=== PATIENT | female | born 1990 | race Caucasian/White ===

== ENCOUNTER 2019-12-09 09:26 | Inpatient (IN) | payer OTHER ==
[~2019-12-09] VITALS: Ht 170.2 cm; Wt 95.0 kg
[~2019-12-09 09:26] MED LIST: CALCIUM500 MG PO; ORTHO TRI-CYCL1 EACH PO; PRENATAL VITAM1 EACH PO; TYLENOL325 MG PO
--- NOTE | 2019-12-14 13:12 | NUR ---
12/14/19 1312 Sheets,Lila 1250 PT ARRIVED TO ROOM 104 WITH FBC RN AT BEDSIDE. BABY TO CHEST, VSS PT DENIES PAIN AND NAUSEA. HOB INCREASED SLIGHTLY. IV INFUSING LR WITH 20 PIT. PT AWAKE AND TALKING TO RN.
[2019-12-14] MEDS ORDERED: PRENATAL VITAM1 EACH PO (19:41)
--- NOTE | 2019-12-15 09:36 | PR ---
[facility] [address] [facility] [place], [place] [address] Signed PP Progress Notes Datetime Report Generated by CPN: 12/15/2019 09:36 SUBJECTIVE: [id number] Pain: Within normal limits Nausea/Vomiting: Denies Vital Signs: [id number] Vital Signs: Reviewed; Within Normal Limits Notable Details: PP Hgb/Hct = 10.3/30.5 EXAM: [id number] Abdomen/Uterus: Normal Extremities: Normal Incision: Normal IMPRESSION/PLAN/PROCEDURES: [id number] Impression: Normal progression Plan: Continue present management Procedures: None Progress Notes: Doing well, without complaint, up sitting in chair Signing Physician: Codi Ruff MD Copies: ~ *Electronically Signed* 12/15/19 0936 CODI RUFF MD PATIENT NAME: WILLIAM RAPHAEL PROGRESS NOTE DATE OF : [birth year] PHYSICIAN: CODI RUFF MD RPT #: [id number] REPORT IS CONFIDENTIAL AND NOT TO BE RELEASED WITHOUT AUTHORIZATION
--- NOTE | 2019-12-15 09:44 | OR ---
[facility] [address] [place], [place] [address] Signed DATE OF OPERATION: 12/14/2019 SURGEON: Aries Alvarenga MD PREOPERATIVE DIAGNOSIS: Term , previous section. POSTOPERATIVE DIAGNOSIS: Term , previous section. PROCEDURE: Repeat low transverse segment section. Delivery of a live female infant. BRAND REPRESENTATIVE: Dr. Tatum. ANESTHESIA: Spinal. ESTIMATED BLOOD LOSS: 600 mL. COMPLICATIONS: None. DRAINS: Munguia to bladder. FINDINGS: Live male infant. Apgars 7 and 9. Nuchal cord x2. Weight: 6 pounds 10 ounces. The placenta was low anterior with the inferior margin of the placenta at the incision. The rest of the uterus was otherwise normal. The left tube was normal in length and normal-appearing fimbriated end. The left ovary was normal size and shape without any evidence of endometriosis or adhesions. The right tube and ovary were missing from previous surgery. There were no adhesions present. No other masses or adhesions were seen. DESCRIPTION: The patient was brought into the operating room, placed in supine position. After adequate spinal anesthesia was in place, was placed back in supine position and prepped Electronically Signed By: ARIES ALVARENGA MD 12/15/19 0944 PATIENT NAME: MATTHIAS RAPHAEL OPERATIVE REPORT DATE OF : [birth year] REPORT #: [id number] PHYSICIAN: ARIES ALVARENGA MD PCP: DEBBIE MURPHY REPORT IS CONFIDENTIAL AND NOT TO BE RELEASED WITHOUT AUTHORIZATION [facility] [address] [place], [place] [address] Signed and draped in usual sterile fashion. A Munguia catheter was placed in the bladder. A Pfannenstiel skin incision was made with a scalpel and extended through the subcutaneous tissue with scalpel and Bovie. The fascia was nicked with scalpel and extended in transverse fashion using curved scissors. The underlying abdominal musculature was bluntly and sharply from the fascia above and below the incision. The abdominal musculature was bluntly and sharply along the midline. The peritoneum was grasped with hemostats, elevated, nicked with scissors, and extended in vertical fashion using curved scissors. The Matthias self-retaining retractor was inserted into the incision and tightened in place. The lower uterine segment was identified. The placenta could be palpable just above the head, so a small incision was made in the lower uterine segment at the lower edge of the placenta and the small portion of the placenta came out through the incision. Finger dissection was used to extend the incision in transverse fashion and then the edge of the placenta pushed back and membranes ruptured. The was noted to be in a vertex JAI presentation. The head easily delivered from the incision. The cord was noted to be around the neck twice. This was removed. The baby's arm also came out during this, so the rest of the infant was then easily delivered from the incision. The cord was doubly clamped and cut and passed off the table in good condition to awaiting nurse. The placenta was then manually removed. Uterine cavity was explored with lap pad to remove any retained membranes. An angle stitch of 0 Monocryl was placed one in the incision and a running locking stitch of 0 Monocryl starting at the other end used to close the incision. A 2nd running stitch of 0 Monocryl was used to imbricate the 1st layer. Good hemostasis was obtained. The entire pelvis was irrigated, suctioned, and examined, and any superficial bleeding spots cauterized with the Bovie. When good hemostasis was obtained, the Matthias retractor was removed and the sheet of ACell placed over the lower uterine segment to help with healing. The anterior wall peritoneum was then closed using running stitch of 2-0 Vicryl suture. The abdominal musculature was reapproximated using interrupted stitches of 0 Vicryl suture. The abdominal wall incision was irrigated, suctioned, examined, and any bleeding spots cauterized with the Bovie. Powdered ACell was then sprinkled on the abdominal musculature to help with healing, then the fascia closed using two running stitches of 0 Vicryl suture meeting in the midline. Subcutaneous tissue was irrigated, suctioned, examined, and any bleeding spots cauterized with the Bovie. The subcutaneous tissue was closed using interrupted stitches of 3-0 Vicryl suture and the skin was then reapproximated using skin clips. The patient tolerated the procedure well, went to recovery room in good condition. The sponge, needle, and instrument count correct at the end of the procedure. Aries Alvarenga MD Electronically Signed By: ARIES ALVARENGA MD 12/15/19 0944 PATIENT NAME: MATTHIAS RAPHAEL OPERATIVE REPORT DATE OF : [birth year] REPORT #: [id number] PHYSICIAN: ARIES ALVARENGA MD PCP: DEBBIE MURPHY REPORT IS CONFIDENTIAL AND NOT TO BE RELEASED WITHOUT AUTHORIZATION [place] [address] Signed MJB/MODL /[id number] Copies: ~ Electronically Signed By: ARIES ALVARENGA MD 12/15/19 0944 PATIENT NAME: MATTHIAS RAPHAEL OPERATIVE REPORT DATE OF : [birth year] REPORT #: [id number] PHYSICIAN: ARIES ALVARENGA MD PCP: DEBBIE MURPHY REPORT IS CONFIDENTIAL AND NOT TO BE RELEASED WITHOUT AUTHORIZATION
--- NOTE | 2019-12-16 09:06 | PR ---
[facility] [address] [facility] [place], [place] [address] Signed PP Progress Notes Datetime Report Generated by CPN: 12/16/2019 09:06 SUBJECTIVE: [id number] Pain: Within normal limits Nausea/Vomiting: Denies Vital Signs: [id number] Vital Signs: Reviewed Notable Details: Repeat Hgb/Hct = 9.9/29.5, Plts = 97,000 EXAM: [id number] Abdomen/Uterus: Normal Lochia: Normal Extremities: Normal Incision: Normal Exam Comments: No bruising, no excessive bleeding IMPRESSION/PLAN/PROCEDURES: [id number] Impression: Normal progression Other Impression: Gestational Thrommbocytopenia Plan: Discharge Procedures: None Progress Notes: Doing well, without complaint, would like to go home. Signing Physician: Codi Ruff MD Copies: ~ *Electronically Signed* 12/16/19 09 CODI RUFF MD PATIENT NAME: WILLIAM RAPHAEL PROGRESS NOTE DATE OF : [birth year] PHYSICIAN: CODI RUFF MD RPT #: [id number] REPORT IS CONFIDENTIAL AND NOT TO BE RELEASED WITHOUT AUTHORIZATION
== END 2019-12-16 12:00 | disposition home or self-care (01) | DRG 787 ==
LOC: FBC 12-14 09:46
PROVIDERS: ADMIT General Practice
PROC: 10D00Z1 Extraction of Products of Conception, Low, Open Approach (ICD-10-PCS; principal; 2019-12-14 12:00)
DX: O34.211 Maternal care for low transverse scar from previous cesarean delivery (principal); O99.12 Other diseases of the blood and blood-forming organs and certain disorders involving the immune mechanism complicating childbirth; N85.8 Other specified noninflammatory disorders of uterus; Z3A.39 39 weeks gestation of pregnancy; Z37.0 Single live birth; O69.81X0 Labor and delivery complicated by cord around neck, without compression, not applicable or unspecified; D69.6 Thrombocytopenia, unspecified; Z88.0 Allergy status to penicillin
CPT/HCPCS: 01961; 36415; 85027; A9270; J0690; J1885; J2001; J2274; J2405; J2590; J7121

== ENCOUNTER 2022-10-17 06:30 | Day surgery (SDC) | payer OTHER ==
[~2022-10-17] VITALS: Ht 167.6 cm; Wt 100.0 kg
[2022-10-17] MEDS ORDERED: VITAMIN D350 MC3 PO (06:45)
[2022-10-17] MEDS ORDERED: PROZAC40 MG PO (06:45)
[2022-10-17] MEDS ORDERED: CLARITIN10 M2 PO (06:45)
--- NOTE | 2022-10-17 07:59 | NUR ---
10/17/22 0759 Silva Banks 9925-PATIENT ARRIVED TO PACU ON 2L NC RR EVEN. PATIENT LAYING LEFT LATERAL REACTIVE TO VERBAL STIMULI REMAINS VERY DROWSY ENCOURAGED TO REST AND PATIENT CLOSES EYES. DENIES PAIN OR NAUSEA. ABDOMEN SOFT. IVF INFUSING.
--- NOTE | 2022-10-17 08:31 | OR ---
[facility] [address] [place], [place] [address] Signed DATE OF OPERATION: 10/17/2022 SURGEON: Yossi Holman MD PREOPERATIVE DIAGNOSES: 1. Sister with rectal cancer and colonic polyps at age 25. 2. Father and mother with colonic polyps. POSTOPERATIVE DIAGNOSES: 1. 7 mm sessile polyp at 80 cm (snare). 2. 4 mm polyp at hepatic flexure. PROCEDURES: Colonoscopy with snare polypectomy and hot biopsy. ESTIMATED BLOOD LOSS: None. INDICATIONS: Matthias is a 32-year-old female who came for her followup colonoscopy. Her older sister was diagnosed with rectal cancer and polyp at the age of 25[address] Contreras took care of her at our [facility]. She continues to do well. Her entire family was told to undergo colonoscopy screenings every five years the rest of their life. Freddy came to me in 2008 at the age of 19. She had a negative colonoscopy. She had done well with Versed and fentanyl. She came back in 2016 at age of 26 with a negative colonoscopy. She always uses a large amount of Versed and fentanyl but seems to do well. We had asked her to follow up in 5 years. 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 She was not able to make it last year. She told me the only change is that she is now on Prozac. 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 She has no lower GI complaints. She said her sister continues to do well. She has a 2nd sister who apparently does not have any colonic polyps. However, mom and dad apparently had colonic polyps removed. In the office, I gave her a pamphlet on colonoscopy. She recalls the nature of the test. There is risk including, but not limited to gas bloating, crampy abdominal pain, bleeding, perforation requiring surgery, and missed diagnosis. We had reviewed the fact that she used a significant amount of Versed and fentanyl previously. However, she has no memory of those procedures. She wanted to proceed with Versed and fentanyl once again. She had expressed understanding and wished to proceed. PROCEDURE NOTE: Electronically Signed By: YOSSI HOLMAN MD 10/17/22 0831 PATIENT NAME: MATTHIAS RAPHAEL OPERATIVE REPORT DATE OF : [birth year] REPORT #: [id number] PHYSICIAN: YOSSI HOLMAN MD PCP: ADWOA MURPHY REPORT IS CONFIDENTIAL AND NOT TO BE RELEASED WITHOUT AUTHORIZATION [facility] [address] [place], [place] [address] Signed Matthias was taken into our endoscopy suite and placed in the left lateral decubitus position. She was given 12 mg of Versed and 125 mcg of fentanyl to cover the case. A digital rectal exam was performed and this was unremarkable. She has good sphincter tone. There were no external hemorrhoids. There were no masses. The adult colonoscope had been introduced and advanced all around into the cecum under direct visualization of the camera. It took some extra sedation and some mild abdominal compression or get the scope directly into the cecum itself. Fortunately, Matthias is easy to pass the scope. Her prep was quite excellent. We could easily see the appendiceal orifice and the ileocecal valve. The scope was then slowly withdrawn. She had just a tiny 4 mm polyp at the hepatic flexure easily removed with the hot biopsy forceps. In back at 80 cm, she had a 7 mm sessile polyp which we removed with the help of the snare. We did cauterize just one side of that area with the help of hot biopsy forceps. We felt confident that the entire polyp was removed. There was no diverticulosis. The rectum was unremarkable. Upon retroflexion of the scope, there was no additional pathology noted above the anal canal. After this, the gas was suctioned out and the colonoscope removed. Matthias tolerated the procedure well. RECOMMENDATIONS: I will see Matthias back in my office in 7 to 14 days to review her results. She will be on the 5-year rotation. It looks like she has been doing well with the versed and fentanyl. Yossi Holman MD ALB/MODL /[id number] cc: MD Adwoa Carrion PA Copies: YOSSI HOLMAN MD Electronically Signed By: YOSSI HOLMAN MD 10/17/22 0831 PATIENT NAME: MATTHIAS RAPHAEL OPERATIVE REPORT DATE OF : [birth year] REPORT #: [id number] PHYSICIAN: YOSSI HOLMAN MD PCP: ADWOA MURPHY REPORT IS CONFIDENTIAL AND NOT TO BE RELEASED WITHOUT AUTHORIZATION [address] [address] Signed ADWOA MURPHY ~ Electronically Signed By: YOSSI HOLMAN MD 10/17/22 0831 PATIENT NAME: MATTHIAS RAPHAEL OPERATIVE REPORT DATE OF : [birth year] REPORT #: [id number] PHYSICIAN: YOSSI HLOMAN MD PCP: ADWOA MURPHY REPORT IS CONFIDENTIAL AND NOT TO BE RELEASED WITHOUT AUTHORIZATION
== END 2022-10-17 09:15 | disposition home or self-care (01) ==
LOC: DS 06:30 → OPS 07:30 → DS 07:30
PROVIDERS: ATTEND Colon & Rectal Surgery
PROC: 0DBL8ZX Excision of Transverse Colon, Via Natural or Artificial Opening Endoscopic, Diagnostic (ICD-10-PCS; 2022-10-17)
PROC: 0DBN8ZX Excision of Sigmoid Colon, Via Natural or Artificial Opening Endoscopic, Diagnostic (ICD-10-PCS; principal; 2022-10-17 07:30)
DX: Z12.11 Encounter for screening for malignant neoplasm of colon (principal); D12.3 Benign neoplasm of transverse colon; D12.5 Benign neoplasm of sigmoid colon; Z83.71 Family history of colonic polyps; Z80.0 Family history of malignant neoplasm of digestive organs
CPT/HCPCS: 84703; 99153; G0500; J2250; J3010; J7121